=== PATIENT | female | born 1990 | race Two or more races ===

== ENCOUNTER 2025-01-04 02:15 | Emergency (ER) | payer OTHER ==
[2025-01-04 02:18] VITALS: RESP 18
[2025-01-04 03:48] LABS: Basophils # (A) 0.05 10*3/uL (0.00-0.10); Basophils % (A) 0.5 %; Eosinophils # (A) 0.14 10*3/uL (0.04-0.35); Eosinophils % (A) 1.5 %; HCT 42.3 % (37.2-46.3); HGB 14.2 g/dL (12.0-15.0); Lymphocytes # (A) 2.49 10*3/uL (0.90-5.00); Lymphocytes % (A) 26.9 %; MCH 29.7 pg (27.0-32.0); MCHC 33.6 g/dL (32.0-37.0); MCV 88.5 fL (80.0-97.0); Mean Platelet Volume 10.3 fL (9.5-12.2); Monocytes # (A) 0.56 10*3/uL (0.20-1.00); Neutrophils % (A) 64.8 %; Platelet Count 243 10*3/uL (140-440); RBC 4.78 10*6/uL (4.10-5.20); RDW 12.3 % (11.5-14.5); WBC 9.27 10*3/uL (4.50-10.00)
[2025-01-04 03:55] LABS: ALT 64 U/L (4-34); AST 32 U/L (14-36); African American GFR (CKD) 89 (>60 ml/min/1.73 sqM); Albumin 4.3 g/dL (3.5-5.0); Alkaline Phosphatase 53 U/L (38-126); Amylase 57 U/L (30-110); Anion Gap 9 mmol/L; Blood Urea Nitrogen 25 mg/dL (7-17); Carbon Dioxide 26 mmol/L (22-30); Chloride 100 mmol/L (98-107); Glucose 120 mg/dL (74-99); Lipase 60 U/L (23-300); Non-African American GFR(CKD) 77 (>60 ml/min/1.73 sqM); Potassium 4.2 mmol/L (3.5-5.1); Sodium 135 mmol/L (137-145); Total Bilirubin 0.6 mg/dL (0.2-1.3); Total Protein 7.2 g/dL (6.3-8.2)
--- NOTE | 2025-01-04 04:13 | ED ---
Abdominal Pain HPI - General Source: patient Mode of arrival: ambulatory <Merry Mcleod - Last Filed: 01/04/25 07:00> <Derek Burgos - Last Filed: 01/04/25 07:50> - General Chief Complaint: Abdominal Pain Stated Complaint: Abd pain Time Seen by Provider: 01/04/25 02:37 - History of Present Illness Initial Comments: 34-year-old female with no reported past medical history who presents emergency department with mid abdominal pain which radiates to the epigastric region. States has been going on for a couple of days. She has had associated nausea with vomiting and has been unable to hold anything down. She denies any dysuria, hematuria or difficulty voiding. Denies diarrhea, constipation, black or bloody stools. She has not taken anything [id number] for symptoms. No fevers. Denies concern for . No other alleviating, precipitating or modifying factors (Merry Mcleod) - Related Data Home Medications Medication Instructions Recorded Confirmed No Known Home Medications 04/16/15 07/27/15 Pnv,Calcium 72/Iron/Folic Acid 02/04/16 02/04/16 [ Plus Tablet] Allergies Allergy/AdvReac Type Severity Reaction Status Date / Time No Known Allergies Allergy Verified 01/04/25 02:18 Review of Systems ROS Other: All systems not noted in ROS Statement are negative. <Merry Mcleod - Last Filed: 01/04/25 07:00> ROS Other: All systems not noted in ROS Statement are negative. <Derek Burgos - Last Filed: 01/04/25 07:50> ROS Statement: Those systems with pertinent positive or pertinent negative responses have been documented in the HPI. Past Medical History Past Medical History: No Reported History History of Any Multi-Drug Resistant Organisms: None Reported Past Surgical History: No Surgical Hx Reported Additional Past Surgical History / Comment(s): molar Past Anesthesia/Blood Transfusion Reactions: No Reported Reaction Past Psychological History: No Psychological Hx Reported Past Alcohol Use History: None Reported Past Drug Use History: None Reported - Past Family History Mother Family Medical History: No Reported History <Merry Mcleod - Last Filed: 01/04/25 07:00> General Exam General appearance: alert, in no apparent distress Head exam: Present: atraumatic, normocephalic, normal inspection Eye exam: Present: normal appearance, PERRL, EOMI. Absent: scleral icterus, conjunctival injection, periorbital swelling ENT exam: Present: normal exam, mucous membranes moist Neck exam: Present: normal inspection. Absent: tenderness, meningismus, lymphadenopathy Respiratory exam: Present: normal lung sounds bilaterally. Absent: respiratory distress, wheezes, rales, rhonchi, stridor Cardiovascular Exam: Present: regular rate, normal rhythm, normal heart sounds. Absent: systolic murmur, diastolic murmur, rubs, gallop, clicks GI/Abdominal exam: Present: soft, tenderness (midepigastric pain), normal bowel sounds. Absent: distended, guarding, rebound, rigid Extremities exam: Present: normal inspection, full ROM, normal capillary refill. Absent: tenderness, pedal edema, joint swelling, calf tenderness Back exam: Present: normal inspection Neurological exam: Present: alert, oriented X3, CN II-XII intact Psychiatric exam: Present: normal affect, normal mood Skin exam: Present: warm, dry, intact, normal color. Absent: rash <Merry Mcleod - Last Filed: 01/04/25 07:00> Course Vital Signs 01/04/25 01/04/25 01/04/25 02:16 03:32 05:20 Temperature 97.3 F L 98.1 F Pulse Rate 66 67 79 Respiratory 18 18 18 Rate Blood Pressure 131/88 108/85 109/60 O2 Sat by Pulse 99 98 99 Oximetry Medical Decision Making - Lab Data Result diagrams: 01/04/25 02:50 01/04/25 02:50 <Merry Mcleod - Last Filed: 01/04/25 07:00> - Lab Data Result diagrams: 01/04/25 02:50 01/04/25 02:50 <Derek Burgos - Last Filed: 01/04/25 07:50> - Medical Decision Making Was pt. sent in by a medical professional or institution (, PA, CASINO GAMING INSPECTOR, urgent care, hospital, or care home...) When possible be specific @ -No Did you speak to anyone other than the patient for history (EMS, parent, family, police, friend...)? What history was obtained from this source @ -No Did you review nursing and triage notes (agree or disagree)? Why? @ -I reviewed and agree with nursing and triage notes Were old charts reviewed (outside hosp., previous admission, EMS record, old EKG, old radiological studies, urgent care reports/EKG's, care home records)? Report findings @ -No old charts were reviewed Differential Diagnosis (chest pain, altered mental status, abdominal pain women, abdominal pain men, vaginal bleeding, weakness, fever, dyspnea, syncope, headache, dizziness, GI bleed, back pain, seizure, CVA, palpatations, mental health, musculoskeletal)? @ -Differential Abdominal Pain Women: Appendicitis, Cholecystitis, diverticulosis, ischemic bowel, pancreatitis, hepatitis, UTI, gastroenteritis, AAA, incarcerated hernia, bowel obstruction, constipation, inflammatory bowel, hepatitis, peptic ulcer disease, splenic infarction, perforated viscus, vulvitis, ovarian torsion, PID, kidney stone, placenta abruption, this is not meant to be an all-inclusive list EKG interpreted by me (3pts min.). @ -Yes and demonstrates sinus rhythm with a rate of 62. IA interval 158. QRS 80. QTc of 414. No acute ST segment elevations or depressions X-rays interpreted by me (1pt min.). @ -None done CT interpreted by me (1pt min.). @ -Pending at this time U/S interpreted by me (1pt. min.). @ -None done What testing was considered but not performed or refused? (CT, X-rays, U/S, labs)? Why? @ -None What meds were considered but not given or refused? Why? @ -None Did you discuss the management of the patient with other professionals (patrick jamil i.e. , PA, CASINO GAMING INSPECTOR, lab, RT, psych nurse, social media project manager, plastic frame inserter, teacher, retail loan officer, skilled nursing case manager)? Give summary @ -spoke with dr. burgos who will take over care of the patient Was smoking cessation discussed for >3mins.? @ -No Was critical care preformed (if so, how long)? @ -No Were there social determinants of health that impacted care today? How? (Homelessness, low income, unemployed, alcoholism, drug addiction, transportation, low edu. Level, literacy, decrease access to med. care, retirement, rehab)? @ -No Was there de-escalation of care discussed even if they declined (Discuss DNR or withdrawal of care, Hospice)? DNR status @ -No What co-morbidities impacted this encounter? (DM, HTN, Smoking, COPD, CAD, Cancer, CVA, ARF, Chemo, Hep., AIDS, mental health diagnosis, sleep apnea, morbid obesity)? @ -None Was patient admitted / discharged? Hospital course, mention meds given and route, prescriptions, significant lab abnormalities, going to OR and other pertinent info. @ -On arrival patient seen and evaluated in room 25. Thorough history and physical exam was performed. IV access was established. Patient was given Toradol and Zofran. IV fluids are administered. CT is performed and pending at this time (Merry Mcleod) Patient care signed out at shift change awaiting CT scan of the abdomen. This does show a distended gallbladder with mild wall thickening. I recommended the patient be evaluated by general surgery. She declined stating that she had a urgent appointment to get 2. At this time the patient was reevaluated she had n o further abdominal pain or tenderness. Vital signs were stable. She had no further vomiting. Her pain was completely resolved and she wished to be discharged. Laboratory tests were unremarkable. Patient was given strict return parameters and outpatient general surgery follow-up. (Derek Burgos) - Lab Data Lab Results 01/04/25 01/04/25 01/04/25 Range/Units 02:50 02:50 04:48 WBC 9.27 (4.50-10.00) 10*3/uL RBC 4.78 (4.10-5.20) 10*6/uL Hgb 14.2 (12.0-15.0) g/dL Hct 42.3 (37.2-46.3) % MCV 88.5 (80.0-97.0) fL MCH 29.7 (27.0-32.0) pg MCHC 33.6 (32.0-37.0) g/dL Plt Count 243 (140-440) 10*3/uL MPV 10.3 (9.5-12.2) fL Immature Gran % (Auto) 0.3 % Neutrophils % 64.8 % Lymphocytes % 26.9 % Monocytes % 6.0 % Eosinophils % 1.5 % Basophils % 0.5 % Immature Gran # 0.03 (0.00-0.04) 10*3/uL Neutrophils # 6.00 (1.80-7.70) 10*3/uL Lymphocytes # 2.49 (0.90-5.00) 10*3/uL Monocytes # 0.56 (0.20-1.00) 10*3/uL Eosinophils # 0.14 (0.04-0.35) 10*3/uL Basophils # 0.05 (0.00-0.10) 10*3/uL Sodium 135 L (137-145) mmol/L Potassium 4.2 (3.5-5.1) mmol/L Chloride 100 (98-107) mmol/L Carbon Dioxide 26 (22-30) mmol/L Anion Gap 9 mmol/L BUN 25 H (7-17) mg/dL Creatinine 0.97 (0.52-1.04) mg/dL Est GFR (CKD-EPI)AfAm 89 (>60 ml/min/1.73 sqM) Est GFR (CKD-EPI)NonAf 77 (>60 ml/min/1.73 sqM) Glucose 120 H (74-99) mg/dL Calcium 10.0 (8.4-10.2) mg/dL Total Bilirubin 0.6 (0.2-1.3) mg/dL AST 32 (14-36) U/L ALT 64 H (4-34) U/L Alkaline Phosphatase 53 (38-126) U/L Total Protein 7.2 (6.3-8.2) g/dL Albumin 4.3 (3.5-5.0) g/dL Amylase 57 (30-110) U/L Lipase 60 (23-300) U/L Urine Color Colorless Urine Appearance Clear (Clear) Urine pH 5.5 (5.0-8.0) Ur Specific Pettus 1.036 H (1.001-1.035) Urine Protein Negative (Negative) Urine Glucose (UA) Negative (Negative) Urine Ketones Negative (Negative) Urine Blood Negative (Negative) Urine Nitrite Negative (Negative) Urine Bilirubin Negative (Negative) Urine Urobilinogen <2.0 (<2.0) mg/dL Ur Leukocyte Esterase Negative (Negative) Urine HCG, Qual (Not Detectd) 01/04/25 Range/Units 04:48 WBC (4.50-10.00) 10*3/uL RBC (4.10-5.20) 10*6/uL Hgb (12.0-15.0) g/dL Hct (37.2-46.3) % MCV (80.0-97.0) fL MCH (27.0-32.0) pg MCHC (32.0-37.0) g/dL Plt Count (140-440) 10*3/uL MPV (9.5-12.2) fL Immature Gran % (Auto) % Neutrophils % % Lymphocytes % % Monocytes % % Eosinophils % % Basophils % % Immature Gran # (0.00-0.04) 10*3/uL Neutrophils # (1.80-7.70) 10*3/uL Lymphocytes # (0.90-5.00) 10*3/uL Monocytes # (0.20-1.00) 10*3/uL Eosinophils # (0.04-0.35) 10*3/uL Basophils # (0.00-0.10) 10*3/uL Sodium (137-145) mmol/L Potassium (3.5-5.1) mmol/L Chloride (98-107) mmol/L Carbon Dioxide (22-30) mmol/L Anion Gap mmol/L BUN (7-17) mg/dL Creatinine (0.52-1.04) mg/dL Est GFR (CKD-EPI)AfAm (>60 ml/min/1.73 sqM) Est GFR (CKD-EPI)NonAf (>60 ml/min/1.73 sqM) Glucose (74-99) mg/dL Calcium (8.4-10.2) mg/dL Total Bilirubin (0.2-1.3) mg/dL AST (14-36) U/L ALT (4-34) U/L Alkaline Phosphatase (38-126) U/L Total Protein (6.3-8.2) g/dL Albumin (3.5-5.0) g/dL Amylase (30-110) U/L Lipase (23-300) U/L Urine Color Urine Appearance (Clear) Urine pH (5.0-8.0) Ur Specific Pettus (1.001-1.035) Urine Protein (Negative) Urine Glucose (UA) (Negative) Urine Ketones (Negative) Urine Blood (Negative) Urine Nitrite (Negative) Urine Bilirubin (Negative) Urine Urobilinogen (<2.0) mg/dL Ur Leukocyte Esterase (Negative) Urine HCG, Qual Not Detected (Not Detectd) Disposition <Merry Mcleod - Last Filed: 01/04/25 07:00> Is patient prescribed a controlled substance at d/c from ED?: No Time of Disposition: 07:49 <Derek Burgos - Last Filed: 01/04/25 07:50> Clinical Impression: Abdominal pain, Biliary colic Disposition: HOME SELF-CARE Condition: Fair Instructions (If sedation given, give patient instructions): Abdominal Pain (ED) Additional Instructions: Please return with any abdominal pain, vomiting, or fever. Please follow-up wi th your primary care provider and general surgery for evaluation. Referrals: None,Stated [Primary Care Provider] - 1-2 days Nathaniel Hines MD [STAFF PHYSICIAN] - 1-2 days
[2025-01-04] MEDS: SODIUM CHLORIDE 0.9% 1,000 ML IV ONE (05:16)
[2025-01-04] MEDS: ONDANSETRON 4 MG/2 ML VIAL IVP STA (05:16)
[2025-01-04] MEDS: KETOROLAC 15 MG/ML 1 ML VIAL IVP STA (05:21)
[2025-01-04 07:00] LABS: Appearance,Urine Clear (Clear); Bilirubin,Urine Negative (Negative); Blood,Urine Negative (Negative); Color,Urine Colorless; Glucose,Urine (UA) Negative (Negative); Ketones,Urine Negative (Negative); Leukocyte Esterase,Urine Negative (Negative); Nitrite,Urine Negative (Negative); PH, Urine 5.5 (5.0-8.0); Protein,Urine Negative (Negative); Specific Gravity,Urine 1.036 (1.001-1.035); Urobilinogen,Urine <2.0 mg/dL (<2.0)
--- NOTE | 2025-01-04 07:25 | CT ---
EXAMINATION TYPE: CT abdomen pelvis w con DATE OF EXAM: 01/04/2025 5:08 AM COMPARISON: None. CLINICAL INDICATION: Female, 34 years old with history of abd pain; Patient has complaints of upper G I abdominal pain. TECHNIQUE: CT of the abdomen and pelvis after IV contrast. Delayed images through the kidneys and cor onal and sagittal reconstructions performed. Contrast used:100 mL of Isovue 300 with IV Contrast, (none if empty) Oral contrast used: without Oral Contrast (none if empty) CT DLP: 969.7 mGycm, Automated exposure control for dose reduction was used. FINDINGS: LOWER CHEST: Unremarkable ABDOMEN LIVER: Unremarkable GALLBLADDER AND BILE DUCTS: Hydropic with possible mild wall thickening. No sathish surrounding inflammation. No biliary ductal dil atation seen. PANCREAS: Unremarkable. SPLEEN: Unremarkable. ADRENAL GLANDS: Unremarkable. KIDNEYS AND URETERS: No evidence of hydronephrosis or renal calculus. The ureters are unremarkable. PELVIS BLADDER: No evidence for wall thickening or mass given limitations of exam. REPRODUCTIVE: Uterus anteverted. Both ovaries are visualized. 2.4 cm dominant follicle or functional cyst of the left ovary. A couple punctate phleboliths. No abnormal fluid collection in the pelvis or pelvic lymphadenopathy. ABDOMEN & PELVIS STOMACH AND BOWEL: No evidence of bowel obstruction. The left side of the colon is collapsed. Submuco j carlos fat deposition here could be idiopathic or could reflect recurrent bouts of old inflammation. Nor mal appendix. Mild overall stool burden. No pericolonic inflammatory change. PERITONEUM/RETROPERITONEUM: No evidence of pneumoperitoneum or free fluid. VASCULATURE: No evidence of aortic aneurysm. MUSCULOSKELETAL: No acute osseous abnormalities LYMPH NODES: No gross evidence for lymphadenopathy. SOFT TISSUE/ABDOMINAL WALL: Unremarkable IMPRESSION: 1. Borderline hydropic gallbladder. Possible mild gallbladder wall thickening. If concern for early acute cholecystitis, either follow-up ultrasound or HIDA scan. 2. Otherwise, no acute inflammatory process identified in the abdomen or pelvis to explain the patien t's symptoms. [facility], , 01/04/2025 7:23 AM
--- NOTE | 2025-01-04 07:27 | XR ---
EXAMINATION TYPE: XR KUB DATE OF EXAM: 01/04/2025 3:40 AM COMPARISON: None CLINICAL INDICATION: Female, 34 years old with history of abdominal pain; PHH, pain TECHNIQUE: One radiographic view of the abdomen was obtained. FINDINGS: Lung bases are clear. Very gentle levoconvex curvature centered along the upper lumbar spine. No dila michael small bowel or air-fluid levels. No suspicious calcifications are seen. Only mild scattered stool is present particularly on the right side of the abdomen. IMPRESSION: No evidence for free air or bowel obstruction. Mild scattered stool. [facility], Workstation: [facility], 01/04/2025 7:25 AM
[2025-01-04 07:50] VITALS: BP 111/72; PULSE 63; TEMP 97.6
== END 2025-01-04 08:00 | disposition home or self-care (01) ==
LOC: EC 02:15
DX: K80.50 Calculus of bile duct without cholangitis or cholecystitis without obstruction (principal)
CPT/HCPCS: 36415; 93005; 80053; 82150; 83690; 85025; 81003; 81025; 74018; 74177; 99285; 96374; 96375; 96361; J2405; J1885; Q9967